=== PATIENT | male | born 1985 | race Caucasian/White ===

== ENCOUNTER 2022-01-27 21:16 | Emergency (ER) | payer SELFPAY ==
[~2022-01-27] VITALS: Ht 182.9 cm; Wt 113.4 kg
[2022-01-27] MEDS ORDERED: GABA300 PO (22:17)
[2022-01-27 22:57] LABS: Influenza A, PCR NEGATIVE (NEGATIVE); Influenza B, PCR NEGATIVE (NEGATIVE); Resp Syncytial Virus, PCR NEGATIVE (NEGATIVE); SARS-Cov-2 (COVID-19) PCR, MMC NEGATIVE (NEGATIVE)
[2022-01-27] MEDS ORDERED: BENZ100A PO (23:47)
== END 2022-01-27 23:57 | disposition home or self-care (01) ==
LOC: ER 21:16
PROVIDERS: Student in an Organized Health Care Education/Training Program
DX: J20.9 Acute bronchitis, unspecified (principal); F17.210 Nicotine dependence, cigarettes, uncomplicated; Z20.822 Contact with and (suspected) exposure to COVID-19; Z79.899 Other long term (current) drug therapy
CPT/HCPCS: 0241U; 71045; A9270

== ENCOUNTER 2022-03-10 00:26 | Day surgery (SDC) | payer OTHER ==
[~2022-03-10 00:26] MED LIST: BENZ100A PO; GABA300 PO
== END 2022-03-10 23:30 | disposition home or self-care (01) ==
LOC: WOUND 00:26
DX: S31.102D Unspecified open wound of abdominal wall, epigastric region without penetration into peritoneal cavity, subsequent encounter (principal); V89.2XXD Person injured in unspecified motor-vehicle accident, traffic, subsequent encounter; S31.105S Unspecified open wound of abdominal wall, periumbilic region without penetration into peritoneal cavity, sequela; Z90.49 Acquired absence of other specified parts of digestive tract; R77.0 Abnormality of albumin; D50.0 Iron deficiency anemia secondary to blood loss (chronic); Z88.7 Allergy status to serum and vaccine; F17.210 Nicotine dependence, cigarettes, uncomplicated
CPT/HCPCS: A9270

== ENCOUNTER 2022-03-23 01:05 | Day surgery (SDC) | payer OTHER | END 2022-03-23 22:40 | disposition home or self-care (01) | LOC: WOUND 01:05 | DX: T81.31XA Disruption of external operation (surgical) wound, not elsewhere classified, initial encounter (principal); R77.0 Abnormality of albumin; D50.0 Iron deficiency anemia secondary to blood loss (chronic); Y83.9 Surgical procedure, unspecified as the cause of abnormal reaction of the patient, or of later complication, without mention of misadventure at the time of the procedure; V89.2XXD Person injured in unspecified motor-vehicle accident, traffic, subsequent encounter; Z90.49 Acquired absence of other specified parts of digestive tract | CPT/HCPCS: 99406; A9270; G0463 ==

== ENCOUNTER 2022-03-29 05:28 | Day surgery (SDC) | payer OTHER | END 2022-03-29 23:03 | disposition home or self-care (01) | LOC: WOUND 05:28 | DX: S31.105A Unspecified open wound of abdominal wall, periumbilic region without penetration into peritoneal cavity, initial encounter (principal); S31.102A Unspecified open wound of abdominal wall, epigastric region without penetration into peritoneal cavity, initial encounter; L97.822 Non-pressure chronic ulcer of other part of left lower leg with fat layer exposed; D50.0 Iron deficiency anemia secondary to blood loss (chronic); Z90.49 Acquired absence of other specified parts of digestive tract; V89.2XXA Person injured in unspecified motor-vehicle accident, traffic, initial encounter | CPT/HCPCS: A9270 ==

== ENCOUNTER 2022-04-06 02:54 | Day surgery (SDC) | payer OTHER | END 2022-04-06 23:08 | disposition home or self-care (01) | LOC: WOUND 02:54 | DX: S31.105A Unspecified open wound of abdominal wall, periumbilic region without penetration into peritoneal cavity, initial encounter (principal); S31.102A Unspecified open wound of abdominal wall, epigastric region without penetration into peritoneal cavity, initial encounter; L97.822 Non-pressure chronic ulcer of other part of left lower leg with fat layer exposed; D50.0 Iron deficiency anemia secondary to blood loss (chronic); R77.0 Abnormality of albumin; V89.2XXA Person injured in unspecified motor-vehicle accident, traffic, initial encounter | CPT/HCPCS: A9270; G0463 ==

== ENCOUNTER 2022-04-13 03:32 | Day surgery (SDC) | payer OTHER | END 2022-04-13 23:21 | disposition home or self-care (01) | LOC: WOUND 03:32 | DX: L97.822 Non-pressure chronic ulcer of other part of left lower leg with fat layer exposed (principal); S31.105S Unspecified open wound of abdominal wall, periumbilic region without penetration into peritoneal cavity, sequela; S31.102D Unspecified open wound of abdominal wall, epigastric region without penetration into peritoneal cavity, subsequent encounter; Z90.49 Acquired absence of other specified parts of digestive tract; V89.2XXD Person injured in unspecified motor-vehicle accident, traffic, subsequent encounter; D50.0 Iron deficiency anemia secondary to blood loss (chronic) | CPT/HCPCS: 99406; G0463 ==

== ENCOUNTER 2022-04-20 02:31 | Day surgery (SDC) | payer OTHER | END 2022-04-20 22:54 | disposition home or self-care (01) | LOC: WOUND 02:31 | DX: T81.31XA Disruption of external operation (surgical) wound, not elsewhere classified, initial encounter (principal); L97.822 Non-pressure chronic ulcer of other part of left lower leg with fat layer exposed; S31.105A Unspecified open wound of abdominal wall, periumbilic region without penetration into peritoneal cavity, initial encounter; S31.102A Unspecified open wound of abdominal wall, epigastric region without penetration into peritoneal cavity, initial encounter; Z90.49 Acquired absence of other specified parts of digestive tract; V89.2XXA Person injured in unspecified motor-vehicle accident, traffic, initial encounter; D50.0 Iron deficiency anemia secondary to blood loss (chronic); Z72.0 Tobacco use | CPT/HCPCS: A9270 ==

== ENCOUNTER 2022-04-27 03:33 | Day surgery (SDC) | payer OTHER | END 2022-04-27 22:39 | disposition home or self-care (01) | LOC: WOUND 03:33 | DX: T81.31XA Disruption of external operation (surgical) wound, not elsewhere classified, initial encounter (principal); D50.0 Iron deficiency anemia secondary to blood loss (chronic); R77.0 Abnormality of albumin; F17.200 Nicotine dependence, unspecified, uncomplicated; Z90.49 Acquired absence of other specified parts of digestive tract | CPT/HCPCS: A9270 ==

== ENCOUNTER 2022-05-05 01:39 | Day surgery (SDC) | payer OTHER | END 2022-05-05 23:09 | disposition home or self-care (01) | LOC: WOUND 01:39 | DX: L97.822 Non-pressure chronic ulcer of other part of left lower leg with fat layer exposed (principal); S31.105S Unspecified open wound of abdominal wall, periumbilic region without penetration into peritoneal cavity, sequela; S31.102D Unspecified open wound of abdominal wall, epigastric region without penetration into peritoneal cavity, subsequent encounter; Z90.49 Acquired absence of other specified parts of digestive tract; D50.0 Iron deficiency anemia secondary to blood loss (chronic); Z72.0 Tobacco use; V89.2XXD Person injured in unspecified motor-vehicle accident, traffic, subsequent encounter | CPT/HCPCS: 99406; G0463 ==

== ENCOUNTER 2022-05-11 01:40 | Day surgery (SDC) | payer OTHER | END 2022-05-11 22:46 | disposition home or self-care (01) | LOC: WOUND 01:40 | DX: T81.32XA Disruption of internal operation (surgical) wound, not elsewhere classified, initial encounter (principal); L97.822 Non-pressure chronic ulcer of other part of left lower leg with fat layer exposed; Z90.49 Acquired absence of other specified parts of digestive tract; D50.0 Iron deficiency anemia secondary to blood loss (chronic); Z72.0 Tobacco use | CPT/HCPCS: 99406; A9270; G0463 ==

== ENCOUNTER 2022-06-01 02:16 | Day surgery (SDC) | payer OTHER | END 2022-06-01 22:46 | disposition home or self-care (01) | LOC: WOUND 02:16 | DX: T81.32XA Disruption of internal operation (surgical) wound, not elsewhere classified, initial encounter (principal); S31.105S Unspecified open wound of abdominal wall, periumbilic region without penetration into peritoneal cavity, sequela; L97.822 Non-pressure chronic ulcer of other part of left lower leg with fat layer exposed; Z90.49 Acquired absence of other specified parts of digestive tract; D50.0 Iron deficiency anemia secondary to blood loss (chronic); Z72.0 Tobacco use; R77.0 Abnormality of albumin | CPT/HCPCS: 99406; G0463 ==